=== PATIENT | male | born 1975 | race Caucasian/White ===

== ENCOUNTER 2021-02-27 10:05 | Outpatient (CLI) | payer OTHER, SELFPAY ==
--- NOTE | 2021-02-27 12:00 | NEURO_ITS ---
Impression: # Complains of numbness and pain of hands. # Bilateral Carpal Tunnel Syndrome. # No ulnar neuropathy. # Normal needle/EMG exam. Nerve Conduction Studies Anti Sensory Summary Table Stim Site NR Peak (ms) P-T Amp (?V) Site1 Site2 Delta-P (ms) Dist (cm) Lokesh (m/s) Left Median Anti Sensory (2-3nd Digit) Wrist 4.8 24.3 Wrist 2-3nd Digit 4.8 14.0 29 Wrist 4.5 19.5 Wrist 2-3nd Digit 4.8 14.0 29 Right Median Anti Sensory (2-3nd Digit) Wrist 3.4 18.4 Wrist 2-3nd Digit 3.4 14.0 41 Wrist 3.5 6.9 Wrist 2-3nd Digit 3.4 14.0 41 Left Radial Anti Sensory (Base 1st Digit) Wrist 2.4 15.5 Wrist Base 1st Digit 2.4 0.0 Right Radial Anti Sensory (Base 1st Digit) Wrist 2.4 14.3 Wrist Base 1st Digit 2.4 0.0 Left Ulnar Anti Sensory (5th Digit) Wrist 2.9 17.5 Wrist 5th Digit 2.9 14.0 48 Right Ulnar Anti Sensory (5th Digit) Wrist 3.0 38.6 Wrist 5th Digit 3.0 14.0 47 Motor Summary Table Stim Site NR Onset (ms) O-P Amp (mV) Site1 Site2 Delta-0 (ms) Dist (cm) Lokesh (m/s) Left Median Motor (Abd Poll Brev) Wrist 4.3 4.5 Elbow Wrist 5.8 31.0 53 Elbow 10.1 4.7 Right Median Motor (Abd Poll Brev) Wrist 4.5 2.4 Elbow Wrist 6.0 31.0 52 Elbow 10.5 1.9 Left Ulnar Motor (Abd Dig Minimi) Wrist 2.8 5.6 A Elbow Wrist 5.7 32.0 56 A Elbow 8.5 5.0 Right Ulnar Motor (Abd Dig Minimi) Wrist 2.7 5.0 A Elbow Wrist 5.5 31.0 56 A Elbow 8.2 4.1 F Wave Studies NR F-Lat (ms) L-R F-Lat (ms) Left Median (Mrkrs) (Abd Poll Brev) 30.88 1.95 Right Median (Mrkrs) (Abd Poll Brev) 28.94 1.95 Left Ulnar (Mrkrs) (Abd Dig Min) 31.49 0.88 Right Ulnar (Mrkrs) (Abd Dig Min) 30.61 0.88 EMG Side Muscle Nerve Root Ins Act Fibs Amp Dur Recrt Comment Right 1stDorInt Ulnar C8-T1 Nml Nml Nml Nml Nml Right Ext Indicis Radial (Post Int) C7-8 Nml Nml Nml Nml Nml Right Ext Digitorum Radial (Post Int) C7-8 Nml Nml Nml Nml Nml Right BrachioRad Radial C5-6 Nml Nml Nml Nml Nml Right PronatorTeres Median C6-7 Nml Nml Nml Nml Nml Right Abd Poll Brev Median C8-T1 Nml Nml Nml Nml Nml Left 1stDorInt Ulnar C8-T1 Nml Nml Nml Nml Nml Left Ext Indicis Radial (Post Int) C7-8 Nml Nml Nml Nml Nml Left Ext Digitorum Radial (Post Int) C7-8 Nml Nml Nml Nml Nml Left BrachioRad Radial C5-6 Nml Nml Nml Nml Nml Left PronatorTeres Median C6-7 Nml Nml Nml Nml Nml Left Abd Poll Brev Median C8-T1 Nml Nml Nml Nml Nml Right Abd Poll Long Radial (Post Int) C7-8 Nml Nml Nml Nml Nml Left Abd Poll Long Radial (Post Int) C7-8 Nml Nml Nml Nml Nml MTDD
== END 2021-02-27 10:06 | disposition home or self-care (01) ==
LOC: ANHNEURO 10:08
PROVIDERS: PCP Internal Medicine; Visit Provider Internal Medicine
DX: R20.0 Anesthesia of skin (principal); G56.03 Carpal tunnel syndrome, bilateral upper limbs
CPT/HCPCS: 95886; 95911

== ENCOUNTER 2021-06-01 20:42 | Emergency (ER) | payer OTHER, SELFPAY ==
[2021-06-01 21:04] VITALS: BP 157/60; PULSE 98; RESP 20; TEMP 36.3; O2SAT 100
--- NOTE | 2021-06-01 21:49 | ED.DENTAL ---
HPI - Dental/Oral General Chief complaint: Dental/Oral Stated complaint: dental pain Time Seen by Provider: 06/01/21 21:40 Source: patient Mode of arrival: ambulatory Limitations: no limitations History of Present Illness HPI Narrative: This is a 45 year old male that presents to the ER for dentalgia since yesterday. Reports redness and swelling of the area. Denies fever. MD Complaint: tooth pain Location: Tooth # (22) Related Data Allergies Allergy/AdvReac Type Severity Reaction Status Date / Time No Known Allergies Allergy Verified 06/01/21 21:06 Review of Systems Review of Systems: CONSTITUTIONAL: Denies fever ENT: Reports dentalgia All systems reviewed & are unremarkable except as noted in HPI and below PMFSH Past Medical History Medical History (Updated 06/01/21 @ 21:52 by Eve Cornejo PA-C) No active medical problems Social History Social History (Updated 06/01/21 @ 21:50 by Eve Cornejo PA-C) Smoking status: Current every day smoker Tobacco type: e-cigarettes/vaping Exam Narrative: GENERAL: Well-appearing, well-nourished, and in no acute distress. HEAD: Normocephalic, atraumatic. EYES: EOMI. ENT: Mucous membranes moist. Oropharynx without tonsillar hypertrophy exudate or other lesions. Poor dentition. Tooth #22 is rotten with mild surrounding erythema, no fluctuance to suggest abscess. No trismus. NECK: Supple. No adenopathy or masses. CHEST: Clear to auscultation. No respiratory distress. No wheezes rales or rhonchi HEART: Regular rate and rhythm. No murmur heard. Normal peripheral pulses. EXTREMITIES: Normal range of motion. No edema. SKIN: Warm, dry, no rash. NEURO: No focal deficits. Alert and oriented x3. PSYCH: Normal mood and affect Course Vital Signs Vital signs: Vital Signs Temperature 97.3 F L 06/01/21 21:04 Pulse Rate 98 06/01/21 21:04 Respiratory Rate 20 06/01/21 21:04 Blood Pressure 157/60 H 06/01/21 21:04 Pulse Oximetry 100 06/01/21 21:04 Temperature 97.3 F L 06/01/21 21:04 Pulse Rate 98 06/01/21 21:04 Respiratory Rate 20 06/01/21 21:04 Blood Pressure 157/60 H 06/01/21 21:04 Pulse Oximetry 100 06/01/21 21:04 MDM - Dental/Oral MDM Narrative Medical decision making narrative: Patient presents to the emergency department for dentalgia present since yesterday. He is afebrile and nontoxic-appearing. Mild surrounding redness of the tooth, there is no fluctuance to suggest an abscess. Patient will be started on oral antibiotics. He was instructed to follow-up with his dentist. He was given warnings to return to the ER Critical Care Time Critical Care Time Critical Care Time: No Discharge Plan Discharge Clinical Impression: Toothache Patient Disposition: Home, Self-Care Condition: Stable Instructions: Antibiotic Form, Toothache (ED) Additional Instructions: Return to the Emergency Department if you experience fever >101, increasing swelling and redness of your tooth, or any other symptoms that are concerning to you Take antibiotic as prescribed. Tylenol or Ibuprofen as needed for pain. You can apply a dab of clove oil to a Qtip and apply to the tooth to help numb the area Follow up with your dentist Prescriptions: New amoxicillin-pot clavulanate 875-125 mg tablet 1 tablet PO Q12H 10 Days Qty: 20 RF: 0 Follow-up/Referrals: Marin,Lloyd Austin MD [Primary Care Provider] -
== END 2021-06-01 22:01 | disposition home or self-care (01) ==
PROVIDERS: Emergency Provider Emergency Medicine; PCP Internal Medicine
DX: K08.89 Other specified disorders of teeth and supporting structures (principal); F17.290 Nicotine dependence, other tobacco product, uncomplicated
CPT/HCPCS: 99283

== ENCOUNTER 2021-09-08 10:27 | Emergency (ER) | payer OTHER, SELFPAY ==
--- NOTE | ~2021-09-08 | CT_ITS ---
EXAMINATION: CT abdomen pelvis wo con DATE: 09/08/2021 13:25 INDICATION: Bilateral flank pain for 5 days. Hematuria. Nausea. History of kidney stones. TECHNIQUE: Computed tomography (CT) of the abdomen and pelvis was performed without intravenous contr ast. Automated exposure control and iterative reconstruction technique were employed. Exam dose: 318 .71 mGy-cm total exam DLP. COMPARISON: None. FINDINGS: No infiltrate or consolidation at the lung bases. Normal heart size. No pericardial or pleu ral effusion. Hepatic steatosis with some sparing adjacent to the gallbladder. No hepatic, splenic, pancreatic, and adrenal or renal space-occupying mass lesion is evident on this limited noncontrast examination. No bile duct or pancreatic duct dilatation. The gallbladder is unremarkable. 2.3 mm mid left renal nonobstructing calculus. 6 mm nonobstructing lower pole right renal calculus. 4.5 mm right ureterovesical junction calculus with minimal right hydroureteronephrosis. No left urete ral calculus or left hydroureteronephrosis. The urinary bladder, prostate gland and seminal vesicles are unremarkable. Normal caliber of the abdominal aorta. No intraperitoneal or retroperitoneal or pelvic mass lesion or adenopathy or ascites. Mild bilateral fat containing inguinal hernias No evidence of appendicitis. No bowel obstruction, bowel wall thickening, pneumatosis or intraperiton eal free air. Small fat-containing umbilical hernia. Multilevel degenerative disc disease, including moderately severe degenerative disc disease and mild retrolisthesis at L3-4, L4-5 and L5-S1. Dextroscoliosis of the lumbar spine. Bilateral hip osteoarthritis. IMPRESSION: 4.5 mm right ureterovesical junction calculus with minimal right hydroureteronephrosis Mild bilateral nonobstructive nephrolithiasis Hepatic steatosis Reviewed, dictated and finalized at [facility] Reviewed, dictated and finalized at [facility]. IMPRESSION: 4.5 mm right ureterovesical junction calculus with minimal right h ydroureteronephrosis Mild bilateral nonobstructive nephrolithiasis Hepatic steatosis
[2021-09-08 11:30] VITALS: BP 128/93; PULSE 82; RESP 14; TEMP 36.2; O2SAT 98
[2021-09-08 11:59] LABS: Basophils Percent Auto 0.6 % (0.2-1.2); Eosinophils Absolute Auto 0.1 K/mm3 (0-0.3); Eosinophils Percent Auto 1.6 % (0-4.4); Hematocrit 43.7 % (42.0-52.0); Hemoglobin 14.7 g/dL (14.0-18.0); Lymphocytes Absolute Auto 1.24 K/mm3 (0.9-3.2); Lymphocytes Percent Auto 19.6 % (18.3-44.2); Mean Corpuscular HGB Conc 33.6 g/dl (32-36); Mean Corpuscular Hemoglobin 29.5 pg (26-34); Mean Corpuscular Volume 87.8 fl (80-100); Mean Platelet Volume 9.3 fl (7.4-10.4); Monocytes Absolute Auto 0.5 K/mm3 (0.1-0.6); Monocytes Percent Auto 7.1 % (2.6-8.5); Neutrophils Absolute Auto 4.5 K/mm3 (1.3-6.7); Neutrophils Percent Auto 71.1 % (45.5-73.1); Platelet Count Result 308 k/mm3 (150-375); Red Blood Count 4.98 M/mm3 (4.6-6.20); Red Cell Distribution Width 13.1 % (11.5-14.5); White Blood Count 6.3 K/mm3 (4.5-10.0)
[2021-09-08 12:08] LABS: Add Urine Microscopic? YES; Appearance Urine Clear (Clear); Bilirubin Urine Negative (Negative); Blood Urine 2+ (Negative); Color Urine Yellow (Yellow); Glucose Urine UA Negative (Negative); Ketones Urine Negative (Negative); Leukocyte Esterase Ur Negative LEU/UL (Negative); Mucus Urine Few /lpf; Nitrate Urine Negative (Negative); Protein Urine Negative (Negative); RBC Urine 0-2 /hpf (0-2); Urobilinogen Urine Negative mg/dL (<2.0)
[2021-09-08 12:14] LABS: Alanine Aminotransferase 57 U/L (4-50); Albumin Level 4.7 g/dL (3.5-5.1); Alkaline Phosphatase 102 U/L (38-126); Anion Gap 7 mmol/L (8-16); Aspartate Amino Transferase 38 U/L (17-59); Bilirubin,Total 0.5 mg/dL (0.2-1.3); Blood Urea Nitrogen 15 mg/dL (9-20); Calcium 9.2 mg/dL (8.4-10.2); Carbon Dioxide 27 mmol/L (22-30); Chloride 104 mmol/L (98-107); Estimated CRCL calculation 119 ml/min; Estimated Glomerular Filt Rate > 60; Glucose 111 mg/dL (65-110); Potassium 4.2 mmol/L (3.4-5.0); Sodium 138 mmol/L (137-145)
--- NOTE | 2021-09-08 12:28 | ED.ABDPAIN ---
HPI - Abdominal Pain General Chief Complaint: Urogenital-Male Stated Complaint: kidney stones Time Seen by Provider: 09/08/21 12:09 Source: patient Mode of arrival: ambulatory Limitations: no limitations History of Present Illness HPI narrative: Patient is a 45-year-old male complaining of bilateral flank pain, right worse than the left, 2 out of 10, sharp accompanied by hematuria started 4 days ago. Patient states that he has a history of kidney stones. Patient denies any chest pain, shortness of breath, nausea, vomiting, diarrhea, GI bleed, fever or chills. Related Data Home Medications Medication Instructions Recorded Confirmed trazodone 50 mg PO HS 09/08/21 Allergies Allergy/AdvReac Type Severity Reaction Status Date / Time No Known Allergies Allergy Verified 09/08/21 11:56 Review of Systems Review of Systems: All systems reviewed & are unremarkable except as noted in HPI and below Constitutional: Constitutional: Denies body ache(s), Denies chills, Denies excessive sweating, Denies fatigue, Denies fever(s), Denies headache(s), Denies lethargy, Denies malaise, Denies weakness and Denies weight loss Eyes: Eyes: Denies blurry vision, Denies change in vision and Denies loss of vision ENT: Denies dizziness, Denies ear discharge, Denies headache(s), Denies lip swelling, Denies epistaxis, Denies nasal congestion, Denies neck pain, Denies throat swelling and Denies tongue swelling Cardiovascular: Cardiovascular: Denies chest pain, Denies chest pain at rest, Denies chest pain with activity, Denies diaphoresis, Denies rapid heart rate, Denies edema, Denies irregular heart rhythm, Denies lightheadedness, Denies palpitations, Denies dyspnea and Denies dyspnea on exertion Respiratory: Respiratory: Denies chest congestion, Denies cough, Denies hemoptysis, Denies dyspnea and Denies dyspnea on exertion Gastrointestinal: Gastrointestinal: Denies abdominal pain, Denies melena, Denies hematochezia, Denies diarrhea, Denies nausea, Denies vomiting and Denies hematemesis Musculoskeletal: Musculoskeletal: Denies abnormal gait, Denies deformity, Denies joint swelling, Denies limited range of motion, Denies neck pain and Denies numbness Neurologic: Denies Abnormal speech present, Denies abnormal gait, Denies confusion, Denies dizziness, Denies headache(s), Denies focal weakness, Denies loss of vision, Denies numbness, Denies Other visual disturbances, Denies Sensory deficit (Neuro) and Denies weakness Psychiatric: Psychiatric: Denies confusion, Denies depression, Denies auditory hallucinations, Denies homicidal ideation and Denies suicidal ideation Endocrine: Endocrine: Denies cold intolerance, Denies excessive sweating, Denies fatigue, Denies heat intolerance and Denies palpitations Hematologic/Lymphatic: Hematologic/Lymphatic: Denies easy bleeding and Denies easy bruising Allergic/Immunologic: Allergic/Immunologic: Denies lip swelling, Denies throat swelling and Denies tongue swelling PMFSH Past Medical History Medical History No active medical problems Social History Social History Smoking status: Current every day smoker Tobacco type: e-cigarettes/vaping Exam Const: General: cooperative, healthy appearing, comfortable, no acute distress, well developed, alert and awake; No confusion Orientation/consciousness: oriented to person, oriented to place, oriented to time, patient oriented x3 and No confusion Limitations: no limitations HENMT: Head: normal to inspection, normocephalic and atraumatic Ears: hearing grossly normal bilaterally, TM normal on the right and TM normal on the left General nose exam: Normal external nose present, Normal nares present and No nasal discharge present Face and sinus: normal facial exam Mouth: Yes Normal oral and palatal mucosa present, Yes lip normal, Yes tongue normal and Yes oropha
[2021-09-08 15:04] VITALS: BP 110/75; PULSE 6; RESP 18; O2SAT 97
[2021-09-08] MEDS: TAMSULOSIN HCL 0.4 MG CAPSULE PO (15:07)
== END 2021-09-08 15:11 | disposition home or self-care (01) ==
PROVIDERS: Emergency Medicine; Emergency Provider Emergency Medicine; PCP Internal Medicine
DX: N13.0 Hydronephrosis with ureteropelvic junction obstruction (principal); N20.0 Calculus of kidney; Z87.442 Personal history of urinary calculi; F17.290 Nicotine dependence, other tobacco product, uncomplicated; K76.0 Fatty (change of) liver, not elsewhere classified
CPT/HCPCS: 36415; 74176; 80053; 81001; 85025; 99284; A9270

== ENCOUNTER 2022-04-07 18:15 | Emergency (ER) | payer OTHER, SELFPAY ==
--- NOTE | ~2022-04-07 | CT_ITS ---
EXAMINATION: CT abdomen pelvis wo con DATE: 04/08/2022 00:13 INDICATION: Right flank pain. TECHNIQUE: Computed tomography (CT) of the abdomen and pelvis was performed without intravenous contr ast. Automated exposure control and iterative reconstruction technique were employed. The dose-length product was 366.72 mGy-cm. COMPARISON: CT abdomen and pelvis 09/08/2021 FINDINGS: The visualized portions of the lung bases demonstrate mild atelectasis. No pleural effusion . The heart size is normal. No pericardial effusion. There is diffuse hepatic steatosis. The gallblad maximus, spleen, pancreas, adrenal glands, and right kidney are normal. There are two 2 mm stones in left kidney. There is a 4 mm stone in distal right ureter with mild hydroureter. Again seen is a phleboli th near the distal right ureter. There are no dilated loops of bowel. The appendix is not visualized. There are no pathologically enlarged lymph nodes. There is no free intraperitoneal fluid. There is s evere lumbar spondylosis. IMPRESSION: 1. 4 mm stone in distal right ureter with mild right hydroureter. 2. Small nonobstructing left kidney stones. Reviewed, dictated and finalized at [facility] [employer]
[2022-04-07 19:12] VITALS: BP 147/83; PULSE 100; RESP 16; TEMP 37.1; O2SAT 98
[2022-04-07 19:27] LABS: Basophils Percent Auto 0.2 % (0.2-1.2); Eosinophils Percent Auto 0.3 % (0-4.4); Hematocrit 41.3 % (42.0-52.0); Hemoglobin 13.9 g/dL (14.0-18.0); Immature Granulocyte Absolute 0.03 K/mm3 (0.00-0.031); Immature Granulocyte Percent A 0.3 % (0-0.5); Lymphocytes Absolute Auto 1.76 K/mm3 (0.9-3.2); Lymphocytes Percent Auto 19.3 % (18.3-44.2); Mean Corpuscular HGB Conc 33.7 g/dl (32-36); Mean Corpuscular Hemoglobin 28.8 pg (26-34); Mean Corpuscular Volume 85.5 fl (80-100); Mean Platelet Volume 8.9 fl (7.4-10.4); Monocytes Absolute Auto 0.6 K/mm3 (0.1-0.6); Monocytes Percent Auto 6.8 % (2.6-8.5); Neutrophils Absolute Auto 6.7 K/mm3 (1.3-6.7); Neutrophils Percent Auto 73.1 % (45.5-73.1); Platelet Count Result 303 k/mm3 (150-375); Red Blood Count 4.83 M/mm3 (4.6-6.20); Red Cell Distribution Width 13.5 % (11.5-14.5); White Blood Count 9.1 K/mm3 (4.5-10.0)
[2022-04-07 19:39] LABS: Alanine Aminotransferase 58 U/L (6-50); Albumin Level 4.4 g/dL (3.5-5.1); Alkaline Phosphatase 104 U/L (38-126); Anion Gap 5 mmol/L (8-16); Aspartate Amino Transferase 51 U/L (17-59); Bilirubin,Total 0.4 mg/dL (0.2-1.3); Blood Urea Nitrogen 18 mg/dL (9-20); Calcium 9.5 mg/dL (8.4-10.2); Carbon Dioxide 27 mmol/L (22-30); Chloride 104 mmol/L (98-107); Estimated CRCL calculation 133 ml/min; Estimated Glomerular Filt Rate > 60; Glucose 121 mg/dL (65-110); Potassium 3.9 mmol/L (3.4-5.0); Sodium 136 mmol/L (137-145)
[2022-04-07 19:50] LABS: Appearance Urine Slightly Cloudy (Clear); Bilirubin Urine Negative (Negative); Blood Urine 2+ (Negative); Color Urine Yellow (Yellow); Glucose Urine UA Negative (Negative); Ketones Urine Negative (Negative); Leukocyte Esterase Ur Negative LEU/UL (Negative); Nitrate Urine Negative (Negative); Protein Urine Negative (Negative); Urobilinogen Urine 0.2 mg/dL (<2.0)
[2022-04-07 19:56] LABS: Add Urine Microscopic? YES; Amorphous Sediment Urine Few; Bacteria Urine Trace /hpf; Mucus Urine Rare /lpf; RBC Urine >75 /hpf (0-2)
[2022-04-07 22:17] VITALS: BP 121/76; PULSE 75; RESP 18; O2SAT 96
--- NOTE | 2022-04-07 22:55 | PC.NURSE ---
Assumed pt care from Diana Brown RN
[2022-04-07 23:00] VITALS: BP 121/72; PULSE 81; RESP 18; O2SAT 98
--- NOTE | 2022-04-07 23:50 | ED.GENADULT ---
HPI - General Adult General Chief complaint: Urogenital-Male Stated complaint: R FLANK PAIN X TD Time Seen by Provider: 04/07/22 23:29 History of Present Illness HPI narrative: A 46-year-old male with history of kidney stones presenting ED with right flank pain. Patient says this pain started 11:00 a.m. this morning. Sharp pain in his right flank that radiates down the right lower quadrant. It was 10/10 originally started but is now decreased to 2/10 intensity. It comes and goes. He has felt this multiple times in the past when he has had kidney stones. He has taken some Tylenol with relief. He has had nausea but no vomiting. He has had yanelis hematuria. He denies fever or chills. He denies dysuria. patient does not have a urologist. Related Data Home Medications Medication Instructions Recorded Confirmed trazodone 50 mg tablet 50 mg PO HS 09/08/21 Allergies Allergy/AdvReac Type Severity Reaction Status Date / Time No Known Allergies Allergy Verified 04/07/22 22:06 Review of Systems Review of Systems: CONSTITUTIONAL: Denies night sweats. EYES: No eye pain ENT: Denies rhinorrhea CARDIOVASCULAR: Denies palpitations RESPIRATORY: Denies hemoptysis GASTROINTESTINAL: Denies hematemesis GENITOURINARY: Denies hematuria. SKIN: Denies rash MUSCULOSKELETAL: Denies myalgia. NEUROLOGIC: Denies weakness. PSYCHIATRIC: Denies delusions PMFSH Past Medical History Medical History No active medical problems Social History Social History Smoking status: Current every day smoker Tobacco type: e-cigarettes/vaping Exam Narrative: APPEARANCE: No apparent distress. Head: atraumatic. EYES: EOMI, NOSE: Atraumatic NECK: Trachea midline RESPIRATORY: No increased rate of breathing CARDIOVASCULAR: RRR, ABDOMINAL: Nondistended, no guarding or rebound. Right CVA tenderness. MUSCULOSKELETAl: No obvious deformities NEURO: Alert. Moving 4/4 extremities SKIN:: Warm, dry. Normal color PSYCHIATRIC: Normal affect Course Vital Signs Vital signs: Vital Signs Temperature 98.8 F 04/07/22 19:12 Pulse Rate 100 04/07/22 19:12 Respiratory Rate 16 04/07/22 19:12 Blood Pressure 147/83 H 04/07/22 19:12 Pulse Oximetry 98 04/07/22 19:12 Oxygen Delivery Room Air 04/07/22 19:12 Temperature 98.8 F 04/07/22 19:12 Pulse Rate 81 04/07/22 23:00 Respiratory Rate 18 04/07/22 23:00 Blood Pressure 121/72 04/07/22 23:00 Pulse Oximetry 98 04/07/22 23:00 Oxygen Delivery Room Air 04/07/22 19:12 Medical Decision Making MDM Narrative Medical decision making narrative: Is a 46-year-old male presenting to ED with right flank pain. CT abdomen pelvis has been ordered. patient is given [place] for pain control. patient's CT showed mild hydronephrosis and hydroureter with a 5 mm and thrill 3 mm stones in the distal ureter. Patient's urine had multiple red blood cells. 4-6 white blood cells but no nitrites or leuk esterase and patient has no urinary symptoms. He has no white count. His pain was controlled with [place]. Patient will be discharged with urology follow-up. Vital Signs Vital Signs: Vital Signs Temperature 98.8 F 04/07/22 19:12 Pulse Rate 100 04/07/22 19:12 Respiratory Rate 16 04/07/22 19:12 Blood Pressure 147/83 H 04/07/22 19:12 Pulse Oximetry 98 04/07/22 19:12 Oxygen Delivery Room Air 04/07/22 19:12 Temperature 98.8 F 04/07/22 19:12 Pulse Rate 81 04/07/22 23:00 Respiratory Rate 18 04/07/22 23:00 Blood Pressure 121/72 04/07/22 23:00 Pulse Oximetry 98 04/07/22 23:00 Oxygen Delivery Room Air 04/07/22 19:12 Lab Data Result diagrams: 04/07/22 19:21 04/07/22 19:21 Labs: Lab Results 04/07/22 04/07/22 04/07/22 Range/Units 19:21 19:21 19:28 WBC 9.1 (4.5-10.0) K/mm3 RBC 4.83
[2022-04-08] MEDS: HYDROcodone/acetaminophen (*CRX) 5-325 MG TABLET 2 TAB PO
[2022-04-08 01:30] VITALS: BP 128/80; PULSE 73; RESP 18; O2SAT 98
== END 2022-04-08 01:45 | disposition home or self-care (01) ==
PROVIDERS: Emergency Medicine; Emergency Provider Emergency Medicine; PCP Internal Medicine
DX: N20.0 Calculus of kidney (principal)
CPT/HCPCS: 36415; 74176; 80053; 81001; 85025; 99284; A9270

== ENCOUNTER 2023-09-15 19:30 | Emergency (ER) | payer OTHER, SELFPAY ==
[2023-09-15 19:31] VITALS: BP 149/89; PULSE 95; RESP 14; TEMP 36.7; O2SAT 98
--- NOTE | 2023-09-15 19:52 | ED.GENADULT ---
HPI - General Adult General Chief complaint: Eye Problems Stated complaint: eye prob Time Seen by Provider: 09/15/23 19:52 History of Present Illness HPI narrative: This is a 47-year-old male presenting eye irritation. He was cleaning out a air conditioner when it turned on and shot dust into his left eye. He has foreign body sensation and irritation. No visual changes. No other injuries. does not wear contacts. Related Data Home Medications Medication Instructions Recorded Confirmed trazodone 50 mg tablet 50 mg PO HS 09/08/21 Allergies Allergy/AdvReac Type Severity Reaction Status Date / Time No Known Allergies Allergy Verified 04/07/22 22:06 [facility] Past Medical History Medical History No active medical problems Social History Social History Smoking status: Current every day smoker Tobacco type: e-cigarettes/vaping Exam Narrative: APPEARANCE: No apparent distress. Head: atraumatic. EYES: EOMI, NOSE: Atraumatic NECK: Trachea midline RESPIRATORY: No increased rate of breathing CARDIOVASCULAR: RRR, ABDOMINAL: Non-distended MUSCULOSKELETAl: No obvious deformities NEURO: Alert. Moving 4/4 extremities SKIN:: Warm, dry. Normal color PSYCHIATRIC: Normal affect Course Vital Signs Vital signs: Vital Signs Temperature 98.0 F 09/15/23 19:31 Pulse Rate 95 09/15/23 19:31 Respiratory Rate 14 09/15/23 19:31 Blood Pressure 149/89 H 09/15/23 19:31 Pulse Oximetry 98 09/15/23 19:31 Oxygen Delivery Room Air 09/15/23 19:31 Temperature 98.0 F 09/15/23 19:31 Pulse Rate 95 09/15/23 19:31 Respiratory Rate 14 09/15/23 19:31 Blood Pressure 149/89 H 09/15/23 19:31 Pulse Oximetry 98 09/15/23 19:31 Oxygen Delivery Room Air 09/15/23 19:31 Medical Decision Making [facility] Narrative Medical decision making narrative: -Course: 47-year-old presenting with eye irritation after dust exposure Eye was irrigated w/ significant improvement in symptoms.. fluorescein stain unremarkable. IOP measuring device is out of order but no concern for acute glaucoma. Patient discharged on Ocuflox eyedrops with close Ophthalmology follow-up. -DDX includes but is not limited to: Foreign body, corneal abrasion, irritant conjunctivitis -Shared decision making / Disposition: discharge -RX Ocuflox Vital Signs Vital Signs: Vital Signs Temperature 98.0 F 09/15/23 19:31 Pulse Rate 95 09/15/23 19:31 Respiratory Rate 14 09/15/23 19:31 Blood Pressure 149/89 H 09/15/23 19:31 Pulse Oximetry 98 09/15/23 19:31 Oxygen Delivery Room Air 09/15/23 19:31 Temperature 98.0 F 09/15/23 19:31 Pulse Rate 95 09/15/23 19:31 Respiratory Rate 14 09/15/23 19:31 Blood Pressure 149/89 H 09/15/23 19:31 Pulse Oximetry 98 09/15/23 19:31 Oxygen Delivery Room Air 09/15/23 19:31 Discharge Plan Discharge Clinical Impression: Corneal irritation of left eye Patient Disposition: Home, Self-Care Condition: Stable Instructions: Antibiotic Form, Corneal Abrasion (DC) Additional Instructions: you were seen in the emergency department for eye irritation. Please use the Ocuflox eyedrops as instructed. Please follow-up with ophthalmology. You can make an appointment with [email or web address] Prescriptions: New ofloxacin [Ocuflox] 0.3 % drops See Rx Instructions .ROUTE .COMPLEX Qty: 5 0RF Rx Instructions: put 1-2 drps into affected eye(s) every 2-4 h x 2 days, then 1-2 drps 4 times/day days 3-7 No Action trazodone 50 mg Tablet 50 mg PO HS tamsulosin [Flomax] 0.4 mg capsule 0.4 mg PO DAILY Qty: 5 0RF sulfamethoxazole-trimethoprim [Bactrim DS] 800-160 mg tablet 1 tablet PO Q12H Qty: 6 0RF ibuprofen 800 mg tablet 800 mg PO TID PRN (Reason: pain) 7 Days Qty: 21 0RF hydrocodone-acetaminophen 5-32
== END 2023-09-15 20:29 | disposition home or self-care (01) ==
PROVIDERS: Emergency Provider Emergency Medicine; PCP Internal Medicine
DX: H18.892 Other specified disorders of cornea, left eye (principal); F17.290 Nicotine dependence, other tobacco product, uncomplicated
CPT/HCPCS: 99283; A9270; J7040